=== PATIENT | male | born 1985 | race Caucasian/White ===

== ENCOUNTER 2017-10-03 10:02 | Emergency (ER) | payer OTHER ==
[~2017-10-03] VITALS: Ht 170.2 cm; Wt 70.4 kg
[2017-10-03] MEDS ORDERED: MEDROL DOSEPAK4 MG PO (12:21)
[2017-10-03] MEDS ORDERED: NAPROSYN500 MG PO (12:21)
[2017-10-03] MEDS ORDERED: FLEXERIL10 MG PO (12:21)
[2017-10-03 12:29] VITALS: BP 120/83
== END 2017-10-03 12:31 | disposition home or self-care (01) ==
LOC: EME 10:02
DX: M51.16 Intervertebral disc disorders with radiculopathy, lumbar region (principal)
CPT/HCPCS: 72131; 99281; 99283; J1885; J7512